=== PATIENT | female | born 1965 | race Caucasian/White ===

== ENCOUNTER 2021-02-04 21:07 | Emergency (ER) | payer OTHER, BC ==
[~2021-02-04] VITALS: Ht 157.4 cm; Wt 77.1 kg
[2021-02-04] MEDS ORDERED: METHOCARBAMOL500 M1 PO (22:18)
[2021-02-04] MEDS ORDERED: IBUPROFEN600 MG PO (22:18)
== END 2021-02-04 22:26 | disposition home or self-care (01) ==
LOC: ED 21:07
DX: S13.4XXA Sprain of ligaments of cervical spine, initial encounter (principal); S20.219A Contusion of unspecified front wall of thorax, initial encounter; M25.551 Pain in right hip; Z88.2 Allergy status to sulfonamides; Z91.041 Radiographic dye allergy status; Z88.8 Allergy status to other drugs, medicaments and biological substances; V89.2XXA Person injured in unspecified motor-vehicle accident, traffic, initial encounter; Y93.I9 Activity, other involving external motion; Y92.89 Other specified places as the place of occurrence of the external cause; Y99.8 Other external cause status